=== PATIENT | male | born 1970 | race Caucasian/White ===

== ENCOUNTER → 2019-02-20 | Outpatient (CLI) | payer OTHER ==
--- NOTE | 2019-02-20 10:33 | FL ---
EXAMINATION TYPE: FL barium swallow DATE OF EXAM: 02/20/2019 CLINICAL HISTORY: Gastroesophageal reflux. Globus sensation. F45.8. TECHNIQUE: A double contrast esophagram is performed utilizing air and barium. A total of 2 minutes and 28 seconds of fluoroscopic time was utilized during procedure. 37 fluoroscopic images were saved . 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 A small amount of vallecular and piriform sinus retention is seen. The esophagus shows normal motility and emptying into the stomach during the upright portion of the examination. However , in the supine portion of the examination there is stasis of contrast within the upper, mid, and low er esophagus with abnormal motility. This creates moderate intraesophageal reflux. No evidence of hia valentin hernia or stricture noted. No significant gastroesophageal reflux was seen during real time perfo rmance of this study. IMPRESSION: 1. Small amount of vallecular and piriform sinus retention expelled with multiple swallows. 2. Abnormal esophageal motility with delayed propulsion in the supine portion of the examination. Thi s results in moderate intraesophageal reflux. No evidence of hiatal hernia or stricture.
== END | disposition home or self-care (01) ==
LOC: RADUSWWP 09:16
PROVIDERS: ATTEND Otolaryngology Plastic Surgery within the Head & Neck
DX: K22.8 Other specified diseases of esophagus (principal); F45.8 Other somatoform disorders
CPT/HCPCS: 74220

== ENCOUNTER → 2019-05-12 | Outpatient (CLI) | payer OTHER ==
[2019-05-12 06:23] LABS: African American GFR (CKD) >90 (>60 ml/min/1.73 sqM); Blood Urea Nitrogen 7 mg/dL (9-20)
--- NOTE | 2019-05-12 08:06 | CT ---
EXAMINATION TYPE: CT soft tissue neck w con DATE OF EXAM: 05/12/2019 COMPARISON: None HISTORY: Dysphagia, Luis Angel's apple displaced to the Right CT DLP: 855.1 mGycm CONTRAST: CT scan of the neck is performed with IV Contrast, patient injected with 100 mL of Isovue 300. Contrast enhanced CT of the neck was performed from the skull base through the lung apices. AIRWAY: The supraglottic, glottic, and subglottic portions of the airway appear patent and free of mass. SALIVARY GLANDS: The submandibular and parotid glands are free of mass or inflammatory process. THYROID GLAND: No nodules or masses seen. LYMPH NODES: No adenopathy seen greater than 1cm. LUNG APICES: No nodule or mass is seen. OTHER: Vascular structures are patent. No significant degenerative change of the cervical spine. N o abscess seen. IMPRESSION: No distinct abnormality to account for patient's symptoms. Normal variant of thyroid cartilage slight ly off center and towards the right.
== END | disposition home or self-care (01) ==
LOC: RADCTMAIN 05:38
PROVIDERS: ATTEND Otolaryngology Plastic Surgery within the Head & Neck
DX: F45.8 Other somatoform disorders (principal)
CPT/HCPCS: 82565; 84520; 70491; 36415; Q9967

== ENCOUNTER → 2021-06-19 | Outpatient (CLI) | payer OTHER ==
--- NOTE | 2021-06-19 15:12 | EST ---
EXERCISE STRESS DATE OF SERVICE: 06/19/2021 AGE: 51 SEX: M HT: 5'11" WT: 345 lbs. PROTOCOL: Emmanuel STAGE: 2 DURATION OF EXERCISE: 4:23 HEART RATE REST: 112 BLOOD PRESSURE REST: 132/96 MAXIMUM HEART RATE ACHIEVED 165 MAXIMUM BLOOD PRESSURE: 172/82 85% MPHR: 145 100% MPHR: 171 METS: 7.1 INDICATIONS Chest pain Baseline EKG revealed sinus mechanism, no acute changes. Patient walked for 4 minutes 23 seconds on a standard Emmanuel protocol. Achieved a maximal heart rate of 165 beats per minute, developed fatigue and shortness of breath but did not have angina or arrhythmia. There was a lot of baseline artifact but rare PVCs were noted. There is no evidence to suggest any ST-segment changes to indicate ischemia. This is a negative stress test with limited exercise capacity without symptoms of angina. Peak blood pressure was 172/82. IMPRESSION: 1. Limited exercise capacity. 2. Negative stress test by EKG criteria. MMODL / IJN: [id number] /
== END ==
LOC: RADNMMAIN 08:31
PROVIDERS: ATTEND Internal Medicine
DX: R07.9 Chest pain, unspecified (principal)
CPT/HCPCS: 93017

== ENCOUNTER 2023-09-07 10:07 | Day surgery (SDC) | payer MEDICARE, OTHER ==
[2023-09-03 16:07] VITALS: BMI 43.6
[2023-09-07 10:38] LABS: Glucose,Whole Blood 109 mg/dL (70-110)
[2023-09-07 11:06] VITALS: BP 126/75; PULSE 105; RESP 18; TEMP 98.2
[2023-09-07] MEDS: LIDOCAINE 1% INJ 10MG/ML (30 ML VIAL-PF) SQ ONE (12:15)
--- NOTE | 2023-09-07 12:24 | P.PCN ---
Date of Procedure: 09/07/23 Preoperative Diagnosis: Osteomyelitis of the jaw Postoperative Diagnosis: same Procedure(s) Performed: Left upper extremity basilic vein PICC placement under ultrasound and fluoroscopic guidance Anesthesia: local Surgeon: Germain Ambrocio Estimated Blood Loss (ml): 5 Pathology: none sent Condition: stable Disposition: PACU Description of Procedure: After written and informed consent was obtained the patient and all risks, benefits and competitions were described the patient was brought to the [facility] [employer] and laid in a supine position with his left arm outstretched on an armboard. The area of the left arm was prepped and draped in usual sterile fashion. Timeout was performed in normal fashion. Utilizing ultrasound the basilic vein was visualized and shown to be compressible without any visible thrombus. Under ultrasound guidance the basilic vein was then cannulated with a micropuncture needle and wire was placed under direct visualization of fluoroscopy. Introducer sheath was then placed. The catheter was measured and cut to the appropriate length which was 50 cm. The catheter was then guided through the breakaway sheath and the sheath was removed with good positioning was visualized under fluoroscopy. The catheter was pulled and flushed easily. It was then secured in place in normal fashion. Patient tolerated the procedure well was sent back to his room for recovery.
--- NOTE | 2023-09-07 12:34 | IR ---
EXAMINATION TYPE: IR cvc insert non tunneled DATE OF EXAM: 09/07/2023 COMPARISON: NONE HISTORY: Fluoroscopy time. Fluoroscopy was provided to the referring clinician.
== END 2023-09-07 12:37 | disposition home or self-care (01) ==
LOC: CATHCVL 10:07
PROVIDERS: ATTEND Surgery
DX: M27.2 Inflammatory conditions of jaws (principal); Z79.899 Other long term (current) drug therapy
CPT/HCPCS: 36573; C1751; C1769; J2001